=== PATIENT | male | born 1995 | race Caucasian/White ===

== ENCOUNTER 2023-11-16 14:15 | Outpatient (CLI) | payer OTHER ==
--- NOTE | 2023-11-16 15:28 | MRI Report ---
PROCEDURE: Knee RT WO INDICATIONS: KNEE PAIN TECHNIQUE: Noncontrast sagittal PD fast spin echo and T2 fast spin echo with fat saturation, sagittal 3-D gradie nt sequence with fat saturation; coronal T1 spin echo and PD fast spin echo with fat saturation, and axial PD fast spin echo with fat saturation through the knee. COMPARISON: None. FINDINGS: Image quality: Excellent. Menisci: The medial and lateral menisci demonstrate normal morphology and internal signal. The meni scal root ligaments appear intact. Cruciate ligaments: The anterior and posterior cruciate ligaments appear intact. Medial structures: The medial collateral ligament appears intact. The posterior oblique ligament, s emimembranosus tendon insertions, and oblique popliteal ligament, and meniscocapsular junction appear intact. Visualized portions of the pes anserinus tendons appear normal. No abnormal bursal fluid. Lateral structures: The lateral collateral ligament, long and short heads of the biceps femoris tend on appear intact. The popliteus tendon appears normal; the popliteofibular ligament appears intact. The posterosuperior and anteroinferior popliteomeniscal fascicles appear intact. The arcuate and fa bellofibular ligaments appear intact, around the lateral inferior geniculate artery. Iliotibial band appears normal. Anterior structures: The quadriceps and patellar tendons appear intact. Patellar alignment is blanca l. No femoral trochlear dysplasia or ventral trochlear prominence. No edema in the infrapatellar fa t pad. Bones and cartilage: There is a subtle line of decreased the signal present involving the lateral tib ial plateau with the underlying associated the marrow edema. Imaging findings are most consistent wit h a stress fracture. The cartilage of the medial and lateral femorotibial compartments, as well as the patellofemoral comp artment, appears normal in thickness. Joint space: There is physiologic knee joint fluid. No Mario's cyst. Normal appearing synovial pli are incidentally noted. IMPRESSION: Subtle area of linear decreased signal on T1-weighted imaging involving the lateral tibi al plateau with surrounding mild to moderate marrow edema. Imaging findings are most consistent with a stress fracture and I would recommend clinical correlation. Reviewed by: Karson Campuzano MD on 11/16/2023 3:26 PM PDT Approved by: Karson Campuzano MD on 11/16/2023 3:26 PM PDT Station ID: [id number]
== END 2023-11-16 14:16 | disposition home or self-care (01) ==
LOC: DI 14:15
PROVIDERS: ATTEND Preventive Medicine Aerospace Medicine
DX: M25.561 Pain in right knee (principal)